=== PATIENT | female | born 1955 | race Caucasian/White ===

== ENCOUNTER 2016-11-01 21:41 | Emergency (ER) | payer OTHER ==
[2016-11-01 21:51] VITALS: BP 148/82; PULSE 66; TEMP 98.5; BMI 36.4
[2016-11-01] MEDS ORDERED: IBUPROFEN 400 MG TABLET (FP) PO ONE ×2 (22:24→22:30)
--- NOTE | 2016-11-01 22:27 | PDOC ---
History of Present Illness - General Chief Complaint: Pain Stated Complaint: BOTH LEGS PAIN/RT ARM PAIN Time Seen by Provider: 11/01/16 22:21 History Source: Patient Exam Limitations: No Limitations - History of Present Illness Initial Comments: 11/01/16 22:21 Here with multiple complaints including generalized body aches, leg pain, wrist pain. is concerned about her veins, numbness not seen her private physician for many months. Denies any recent travel, denies swelling or pain to 1 leg. Has no history of DVT, PE or any other risk factors other than obesity. was recently initiated an exercise program for the past 2 days with aggressive walking. Patient suffers from severe psoriasis but has never been evaluated for psoriatic arthritis. Denies fever, denies headache earache sore throat pain coughing or URI symptoms. 11/01/16 22:39 Occurred: reports: this afternoon Severity: reports: mild Pain Location: reports: lower extremity (bilateral leg/ thigh pain=- asking about clots. ) Modifying Factors: improves with: None Associated Symptoms (Fall): denies symptoms Past History - Travel Traveled outside of the country in the last 30 days: No Close contact w/someone who was outside of country & ill: No - Past Medical History Allergies/Adverse Reactions: Allergies Allergy/AdvReac Type Severity Reaction Status Date / Time No Known Allergies Allergy Verified 11/01/16 22:31 Home Medications: Ambulatory Orders Aripiprazole [Abilify] 0 mg PO BID 02/16/13 Bupropion HCl [Wellbutrin] 100 mg PO BID 02/16/13 Ibuprofen [Motrin -] 800 mg PO TID #30 tablet 08/03/15 Oxycodone HCl/Acetaminophen [Percocet 5/325 -] 1 tab PO Q4H #15 tablet 08/03/15 Ibuprofen [Motrin -] 400 mg PO QID PRN #28 tablet 11/01/16 Psychiatric Problems: Yes (depression, HALLUCINATIONS) - Surgical History Cholecystectomy: Yes - Psycho/Social/Smoking Cessation Hx Anxiety: No Suicidal Ideation: No Smoking Status: Yes Smoking History: Former smoker Have you smoked in the past 12 months: No Number of Cigarettes Smoked Daily: 0 Information on smoking cessation initiated: No Hx Alcohol Use: No Drug/Substance Use Hx: No Review of Systems - Review of Systems Able to Perform ROS?: Yes Is the patient limited Slovenian proficient: Yes Constitutional: Yes: See HPI. No: Symptoms Reported, Chills, Fever, Loss of Appetite, Malaise HEENTM: No: Symptoms Reported Respiratory: No: Symptoms reported Musculoskeletal: Yes: Symptoms Reported, See HPI, Joint Pain (wrist and knees ) , Muscle Pain. No: Joint Swelling Neurological: Yes: Symptoms reported Psychiatric: Yes: Anxiety, Other (bipolar) All Other Systems: Reviewed and Negative *Physical Exam - Vital Signs Last Vital Signs Temp Pulse Resp BP Pulse Ox 98.5 F 66 20 148/82 100 11/01/16 21:46 11/01/16 21:46 11/01/16 21:46 11/01/16 21:46 11/01/16 21:46 - Physical Exam Comments: 11/01/16 22:41 General Appearance: Yes: Appropriately Dressed. No: Apparent Distress HEENT: positive: TOSHIA, Normal ENT Inspection, TMs Normal, Pharynx Normal Neck: positive: Supple. negative: Tender Respiratory/Chest: positive: Lungs Clear, Normal Breath Sounds Musculoskeletal: positive: Normal Inspection. negative: Decreased Range of Motion Extremity: positive: Normal Capillary Refill, Normal Inspection, Normal Range of Motion, Tender (mild superficial tenderness along bilateral mid quadricep muscles, no abscess, no cording, are equal in size bilaterally. Neurovascular intact to feet, negative pain reproduced with Homans bilaterally.) Integumentary: positive: Normal Color, Dry, Other (multiple patches covering all of extremities face scalp with psoriatic plaque. No erythema or evidence of cellulitis but has extensive covered). negative: Swelling, Ecchymosis Neurologic: positive: product marketing executive II-XII NML intact, Fully Oriented, Alert, Normal Mood/ Affect, Normal Response, Motor Strength 5/5 Progress Note - Progress Note Progress Note: Muscle strain due to changes in exercise, will treat with ibuprofen. Patient encouraged to follow-up with her PMD/fuse maker/scrap burner to have psoriasis reevaluated for potential new types of treatment *DC/Admit/Observation/Transfer Diagnosis at time of Disposition: Muscle ache, Psoriasiform eczema - Discharge Dispostion Disposition: HOME Condition at time of disposition: Stable Admit: No - Patient Instructions Printed Discharge Instructions: DI for Muscle Strain Additional Instructions: Rest, avoid strenuous activity or exercise until pain resolves May use ibuprofen 2200 milligrams tablets or 400 mg tablets every 6 hours ( take with food) for pain relief Follow-up with dermatology/rheumatology clinic for further evaluation of possible changes and worsening of psoriasis to include arthritis
== END 2016-11-01 22:33 | disposition home or self-care (01) ==
LOC: JERFT 21:41
DX: S76.112A Strain of left quadriceps muscle, fascia and tendon, initial encounter (principal); S76.111A Strain of right quadriceps muscle, fascia and tendon, initial encounter; X50.0XXA Overexertion from strenuous movement or load, initial encounter; Y93.B9 Activity, other involving muscle strengthening exercises; Y92.89 Other specified places as the place of occurrence of the external cause; Y99.8 Other external cause status
CPT/HCPCS: 99281-25

== ENCOUNTER 2017-08-02 15:54 | Emergency (ER) | payer OTHER ==
[2017-08-02 16:05] VITALS: BP 141/76; PULSE 82; TEMP 98.4; BMI 36.6
--- NOTE | 2017-08-02 17:40 | PDOC ---
History of Present Illness - General Chief Complaint: Eye Problem Stated Complaint: EYE PROBLEM Time Seen by Provider: 08/02/17 17:02 - History of Present Illness Initial Comments: 08/02/17 17:39 CHIEF COMPLAINT: eye pain HISTORY OF PRESENT ILLNESS: 61 yo F with hx of hypertension, depression, psoriasis, hysterectomy, and cholecystectomy presents to [facility] with tearing and irritation to R eye x "several months." Patient states she was seen by an opthalmologist in the past and told she needed to see a "cornea specialist because he didn't know what it is." Patient denies any change of vision but reports that the pain worsened over the last two days "and it feels like somtehing scratched the eye and moved to the middle of the eye." No recent travel or sick contacts. PAST MEDICAL HISTORY: as per hpi FAMILY HISTORY: Denies SOCIAL HISTORY: Denies tobacco, alcohol, illicit drug use. SURGICAL HISTORY: Denies ALLERGIES: No known drug allergies REVIEW OF SYSTEMS General/Constitutional: Denies fever or chills. Denies weakness, weight change. HEENT: R eye irritation and pain. Denies change in vision. Cardiovascular: Denies chest pain or shortness of breath. Respiratory: Denies cough, wheezing. Gastrointestinal: Denies nausea. Musculoskeletal: Denies joint or muscle swelling or pain. Denies neck or back pain. Neurologic: Denies headache, vertigo. PHYSICAL EXAM General Appearance: Well-appearing, appropriately dressed. No apparent distress. HEENT: Injected right eye, tearing. EOMI, PERRLA, normal ENT inspection, normal voice, TMs normal, pharynx normal. No conjunctival pallor. Respiratory/Chest: Lungs CTAB. Cardiovascular: RRR. S1, S2. Musculoskeletal/Extremities: Normal inspection. FROM of all extremities, normal capillary refill. Pelvis Stable. No CVA tenderness. No tenderness to extremities, pedal edema, swelling, erythema or deformity. Integumentary: Appropriate color, dry, warm. No cyanosis, erythema, jaundice or rash Neurologic: wharf builder II-XII intact. Fully oriented, alert. Appropriate mood/affect. Motor strength 5/5. No appreciable EOM palsy, facial droop or sensory deficit. Past History - Past Medical History Allergies/Adverse Reactions: Allergies Allergy/AdvReac Type Severity Reaction Status Date / Time No Known Allergies Allergy Verified 08/02/17 16:04 Home Medications: Ambulatory Orders Aripiprazole [Abilify] 0 mg PO BID 02/16/13 Bupropion HCl [Wellbutrin] 100 mg PO BID 02/16/13 Erythromycin 0.5% Eye Ointment [Erythromycin 0.5% Eye Ointment -] 1 applic OD TID #1 tube 08/02/17 COPD: No Psychiatric Problems: Yes (depression, PSYCHOSIS) Other medical history: PSORIASIS - Surgical History Cholecystectomy: Yes - Suicide/Smoking/Psychosocial Hx Smoking Status: Yes Smoking History: Never smoked Have you smoked in the past 12 months: No Number of Cigarettes Smoked Daily: 0 Hx Alcohol Use: No Drug/Substance Use Hx: No Substance Use Type: None *Physical Exam - Vital Signs Last Vital Signs Temp Pulse Resp BP Pulse Ox 98.4 F 82 20 141/76 100 08/02/17 16:01 08/02/17 16:01 08/02/17 16:01 08/02/17 16:01 08/02/17 16:01 Medical Decision Making - Medical Decision Making 08/02/17 17:47 61 yo F with hx of hypertension, depression, psoriasis, hysterectomy, and cholecystectomy presents to [facility] with tearing and irritation to R eye x "several months." -fluorescein stain reveals lesion to cornea, possible corneal abrasion. erythromycin ointment f/u with optho/corneal specialist *DC/Admit/Observation/Transfer Diagnosis at time of Disposition: Corneal abrasion, right Qualifiers: Encounter type: subsequent encounter Qualified Code(s): S05.01XD - Injury of conjunctiva and corneal abrasion without foreign body, right eye, subsequent encounter - Discharge Dispostion Disposition: HOME Condition at time of disposition: Stable Admit: No - Prescriptions Prescriptions: Erythromycin 0.5% Eye Ointment [Erythromycin 0.5% Eye Ointment -] 1 applic OD TID #1 tube - Referrals Referrals: Mitzi Sorensen MD [Primary Care Provider] - Umang Lind MD [Staff Physician] - - Patient Instructions Printed Discharge Instructions: DI for Corneal Abrasion Additional Instructions: Please follow up with Dr. Lind or the corneal specialist as discussed. If you develop any sudden change in your vision, severe headache to one side, or any new or worsening symptoms, please return to the ER. - Post Discharge Activity
[2017-08-02] MEDS ORDERED: ERYTHROMYCIN 0.5% OPHTHALMIC OINTMENT 3.5 GM TUBE OD ONE (17:49)
[2017-08-02] MEDS ORDERED: ERYTHROMYCIN 0.5% OPHTHALMIC OINTMENT 3.5 GM TUBE ONE (17:52)
== END 2017-08-02 17:55 | disposition home or self-care (01) ==
LOC: JERFT 15:54
DX: S05.01XD Injury of conjunctiva and corneal abrasion without foreign body, right eye, subsequent encounter (principal); I10 Essential (primary) hypertension; F32.9 Major depressive disorder, single episode, unspecified; L40.9 Psoriasis, unspecified; Z90.49 Acquired absence of other specified parts of digestive tract; X58.XXXA Exposure to other specified factors, initial encounter; Y93.89 Activity, other specified; Y92.89 Other specified places as the place of occurrence of the external cause; Y99.8 Other external cause status
CPT/HCPCS: 99281-25

== ENCOUNTER 2017-09-15 13:27 | Emergency (ER) | payer OTHER ==
[2017-09-15 13:35] VITALS: BP 141/76; PULSE 86; TEMP 98.7; BMI 36.1
--- NOTE | 2017-09-15 13:55 | PDOC ---
History of Present Illness - General Chief Complaint: Eye Problem Stated Complaint: SWOLLEN FACE Time Seen by Provider: 09/15/17 13:39 History Source: Patient Exam Limitations: No Limitations - History of Present Illness Initial Comments: 09/15/17 14:17 patient came for evaluation of insertions about right facial swelling. States some years ago had a "silicone injection to her face to get rid of the wrinkles" and states now is concerned she may get cancer. States feel face is swollen but not as much is last night. Denies any itching, fevers, or any other symptoms. Denies any history of ALLERGIES, no history of trauma. Suffers from psoriasis but does not feel this is related. Denies any dental injury or decay. No sinus issue. Patient has taken no medication Timing/Duration: unsure, 24 hours Severity: mild Associated Symptoms: reports: denies symptoms Past History - Travel Traveled outside of the country in the last 30 days: No Close contact w/someone who was outside of country & ill: No - Past Medical History Allergies/Adverse Reactions: Allergies Allergy/AdvReac Type Severity Reaction Status Date / Time No Known Allergies Allergy Verified 09/15/17 13:32 Home Medications: Ambulatory Orders Aripiprazole [Abilify] 0 mg PO BID 02/16/13 Bupropion HCl [Wellbutrin] 100 mg PO BID 02/16/13 Erythromycin 0.5% Eye Ointment [Erythromycin 0.5% Eye Ointment -] 1 applic OD TID #1 tube 08/02/17 COPD: No Psychiatric Problems: Yes (depression, PSYCHOSIS) - Surgical History Abdominal Surgery: Yes (hysterectomy) Cholecystectomy: Yes - Suicide/Smoking/Psychosocial Hx Smoking Status: Yes Smoking History: Never smoked Have you smoked in the past 12 months: No Number of Cigarettes Smoked Daily: 0 Information on smoking cessation initiated: No Hx Alcohol Use: No Drug/Substance Use Hx: No Substance Use Type: None Review of Systems - Review of Systems Able to Perform ROS?: Yes Is the patient limited Slovenian proficient: Yes Constitutional: Yes: See HPI. No: Symptoms Reported, Fever, Malaise HEENTM: Yes: See HPI. No: Symptoms Reported, Eye Pain, Nose Congestion, Throat Swelling, Mouth Pain, Dental Problems, Difficulty Swallowing, Mouth Swelling Respiratory: Yes: See HPI. No: Symptoms reported, Cough, Wheezing Musculoskeletal: Yes: See HPI. No: Symptoms Reported Integumentary: Yes: Symptoms Reported, See HPI, Other (chronic psoriasis) Neurological: No: Symptoms reported All Other Systems: Reviewed and Negative *Physical Exam - Vital Signs Last Vital Signs Temp Pulse Resp BP Pulse Ox 98.7 F 86 18 141/76 100 09/15/17 13:32 09/15/17 13:32 09/15/17 13:32 09/15/17 13:32 09/15/17 13:32 - Physical Exam General Appearance: Yes: Nourished, Appropriately Dressed. No: Apparent Distress HEENT: positive: TOSHIA, Normal ENT Inspection, TMs Normal, Pharynx Normal (no swelling to lips, tongue, no evidence of angioedema) Neck: positive: Supple. negative: Tender, Lymphadenopathy (R), Lymphadenopathy (L) Respiratory/Chest: positive: Lungs Clear, Normal Breath Sounds Cardiovascular: positive: Regular Rhythm Gastrointestinal/Abdominal: positive: Soft. negative: Tender Musculoskeletal: positive: Normal Inspection Extremity: positive: Normal Capillary Refill, Normal Inspection, Normal Range of Motion Integumentary: positive: Normal Color, Dry, Warm, Pale Medical Decision Making - Medical Decision Making 09/15/17 16:21 No evidence of angioedema, dermatitis worsening, or dental injury. Without any obvious pathology will continue conservative treatment and observation. Encouraged to follow-up with PMD for reevaluation for potential illness related to previous surgical procedures *DC/Admit/Observation/Transfer Diagnosis at time of Disposition: Left facial swelling - Discharge Dispostion Disposition: HOME Condition at time of disposition: Stable Admit: No - Referrals Referrals: Mitzi Sorensen MD [Primary Care Provider] - - Patient Instructions Additional Instructions: May try antihistamines Claritin Zyrtec or Xochitl as needed for any possibility of ALLERGIC reaction Follow-up with PMD for any other testing and concerns of cancer due to previous silicone injections of face - Post Discharge Activity
== END 2017-09-15 14:05 | disposition home or self-care (01) ==
LOC: JERFT 13:27
DX: R22.9 Localized swelling, mass and lump, unspecified (principal); L40.9 Psoriasis, unspecified; F32.9 Major depressive disorder, single episode, unspecified
CPT/HCPCS: 99281-25